=== PATIENT | male | born 1950 | race Caucasian/White ===

== ENCOUNTER → 2018-09-23 | Outpatient (CLI) | payer OTHER, BC | LOC: BHLMT 10:45 | PROVIDERS: ATTEND Internal Medicine | DX: R55 Syncope and collapse (principal) | CPT/HCPCS: 93225-PO; 93226-PO; 93306-PO ==

== ENCOUNTER → 2019-01-07 | Outpatient (CLI) | payer OTHER, BC | LOC: FIMAGING 12:55 | PROVIDERS: ATTEND Radiology Diagnostic Radiology | DX: I83.893 Varicose veins of bilateral lower extremities with other complications (principal) ==